=== PATIENT | female | born 1970 | race Caucasian/White ===

== ENCOUNTER 2017-12-06 14:49 | Emergency (ER) | payer SELFPAY | END 2017-12-06 17:55 | disposition home or self-care (01) | LOC: ERS 14:49 | DX: G89.29 Other chronic pain (principal); M54.9 Dorsalgia, unspecified; E03.9 Hypothyroidism, unspecified; I10 Essential (primary) hypertension; J45.909 Unspecified asthma, uncomplicated; F41.9 Anxiety disorder, unspecified; F32.9 Major depressive disorder, single episode, unspecified | CPT/HCPCS: 99283 ==

== ENCOUNTER 2017-12-23 14:32 | Emergency (ER) | payer SELFPAY | END 2017-12-23 14:56 | disposition home or self-care (01) | LOC: ERS 14:32 | DX: M25.561 Pain in right knee (principal); G89.29 Other chronic pain; K58.9 Irritable bowel syndrome, unspecified; I10 Essential (primary) hypertension; E03.9 Hypothyroidism, unspecified; J45.909 Unspecified asthma, uncomplicated; F41.9 Anxiety disorder, unspecified; F32.9 Major depressive disorder, single episode, unspecified | CPT/HCPCS: 99281; 99283 ==

== ENCOUNTER 2018-01-04 19:23 | Emergency (ER) | payer SELFPAY ==
[2018-01-04] MEDS ORDERED: Ibuprofen 200 MG TAB ONE (19:50)
== END 2018-01-04 19:56 | disposition home or self-care (01) ==
LOC: ERS 19:23
DX: S80.02XA Contusion of left knee, initial encounter (principal); E03.9 Hypothyroidism, unspecified; I10 Essential (primary) hypertension; J45.909 Unspecified asthma, uncomplicated; F41.9 Anxiety disorder, unspecified; F32.9 Major depressive disorder, single episode, unspecified; Z79.899 Other long term (current) drug therapy; W22.8XXA Striking against or struck by other objects, initial encounter
CPT/HCPCS: 99283

== ENCOUNTER 2018-01-18 10:01 | Emergency (ER) | payer SELFPAY ==
--- NOTE | 2018-01-18 10:48 | RAD ---
LEFT KNEE 4 VIEWS: HISTORY: A 48-year-old female with a history of chronic left knee pain. FINDINGS: No fracture, dislocation, or other significant acute osseous abnormality. IMPRESSION: Unremarkable left knee. No acute process. POS: [facility]
== END 2018-01-18 11:56 | disposition home or self-care (01) ==
LOC: ERS 10:01
DX: S86.912A Strain of unspecified muscle(s) and tendon(s) at lower leg level, left leg, initial encounter (principal); E03.9 Hypothyroidism, unspecified; I10 Essential (primary) hypertension; J45.909 Unspecified asthma, uncomplicated; F41.9 Anxiety disorder, unspecified; F32.9 Major depressive disorder, single episode, unspecified; Z79.899 Other long term (current) drug therapy; W17.89XA Other fall from one level to another, initial encounter